=== PATIENT | female | born 1955 | race Caucasian/White ===

== ENCOUNTER 2023-03-29 18:23 | Inpatient (IN) | payer MEDICARE, OTHER ==
[~2023-03-29] VITALS: Ht 152.4 cm; Wt 70.7 kg
[2023-03-29 18:41] LABS: BASOPHILS # (AUTO) 0.1 10^3/uL (0.0-0.1); BASOPHILS % (AUTO) 1 % (0-10); EOSINOPHILS # (AUTO) 0.2 10^3/uL (0.0-0.3); EOSINOPHILS % (AUTO) 2 % (0-10); HEMATOCRIT 44 % (35-52); HEMOGLOBIN 14.4 g/dL (11.5-16.0); LYMPHOCYTES % (AUTO) 18 % (12-44); MEAN CORPUSCULAR HEMOGLOBIN 28 pg (25-34); MEAN CORPUSCULAR HGB CONC 33 g/dL (32-36); MEAN CORPUSCULAR VOLUME 86 fL (80-99); MEAN PLATELET VOLUME 9.4 fL (9.0-12.2); MONOCYTES # (AUTO) 1.2 10^3/uL (0.0-1.0); MONOCYTES % (AUTO) 11 % (0-12); NEUTROPHILS # (AUTO) 7.6 10^3/uL (1.8-7.8); NEUTROPHILS % (AUTO) 68 % (42-75); PLATELET COUNT 453 10^3/uL (130-400); WHITE BLOOD COUNT 11.1 10^3/uL (4.3-11.0)
[2023-03-29] MEDS ORDERED: ASPIRIN 81 MG CHEWABLE TABLET PO ONE (18:45)
[2023-03-29 18:48] LABS: INR 0.9 (0.8-1.4); PROTHROMBIN TIME PATIENT 12.3 SEC (12.2-14.7)
[2023-03-29 18:57] LABS: BILIRUBIN,TOTAL 0.5 MG/DL (0.1-1.0); BUN/CREATININE RATIO 14; CALCIUM 9.7 MG/DL (8.5-10.1); CARBON DIOXIDE 22 MMOL/L (21-32); CHLORIDE 99 MMOL/L (98-107); CREATININE SERUM 0.84 MG/DL (0.60-1.30); GFR ESTIMATED 76; GLUCOSE 125 MG/DL (70-105); MAGNESIUM 2.2 MG/DL (1.6-2.4); POTASSIUM 3.5 MMOL/L (3.6-5.0); SODIUM 135 MMOL/L (135-145)
[2023-03-29 18:58] LABS: ALANINE AMINOTRANSFERASE 20 U/L (0-55); ALBUMIN 4.5 GM/DL (3.2-4.5); ALKALINE PHOSPHATASE 149 U/L (40-136); LIPASE 39 U/L (8-78)
[2023-03-29] MEDS ORDERED: meTOprolol 5 MG/5 ML (LOPRESSOR) VIAL IV STA (19:00)
[2023-03-29] MEDS ORDERED: NS IV 1000 ML 1,000 ML IV STA (19:00)
[2023-03-29 19:05] LABS: FIBRIN DEGRADATION PRODUCTS 0.38 UG/ML (0.00-0.49)
--- NOTE | 2023-03-29 19:06 | ED Chest Pain ---
General Chief Complaint: Chest Pain Stated Complaint: CHEST PAIN Nursing Triage Note: Patient presents to the ED with c/o chest pain and irregular heart rate. States she was eating dinner when she felt a burning sensation and felt like her heart rate was irregular and rapid. Had chest pain on Thursday that started in right shoulder/upper back and went through to chest. States that pain resloved but does have a rash to the right shoulder area. Increased belching. History of NJ and non-compliant with medication. Source: patient History of Present Illness Date Seen by Provider: Mar 29, 2023 Time Seen by Provider: 18:24 Initial Comments 67-year-old female presenting with complaints of right-sided chest pain since March 24. She still has pain under her right shoulder blade. She does have a erythematous blistering rash in this area. She felt like she has been having irregular heartbeat and palpitations. She states that some of this feels similar to when she had a heart attack in [place] and had to have a stent placed in 2016. She reports moving to [place] in 2018 and she has never followed up with any provider since moving here. She felt like all of the medicines they were giving her in [place] was making her fatigued and loopy. She does take a baby aspirin every day along with a multivitamin and garlic. She states that tonight she was having pain and after dinner and felt like her heart was beating rapid and irregular. She states that the pain in the right side of her chest is improved but she still has pain to the right scapula where she has a rash. She has had increased belching. She still has her gallbladder and denies any other surgery other than to have the stent placement. Since she kept feeling like her heart was racing and beating irregular she got scared and decided to come to the emergency department tonight. Timing/Duration: 1 week Severity/Quality: moderate Location: back (Right-sided chest into her back and shoulder blade) Activities at Onset: none Prior CP/Workup: cardiac cath (Stent placement in [place] in 2016), heart attack (2015 when she had the stent placed in [place]) ASA po BLEACH RANGE OPERATOR: No NTG SL BLEACH RANGE OPERATOR: No Associated Symptoms: No abdominal pain, No back pain, No diaphoresis, No d izziness, No edema, No fatigue, No fever/chills, No headache, No heartburn, No nausea/vomiting, No rash; shortness of breath; No swelling/lump in chest, No syncope Allergies and Home Medications Allergies Coded Allergies: No Known Drug Allergies (Unverified , 03/29/23) Patient Home Medication List Home Medication List Reviewed: Yes Review of Systems Review of Systems Constitutional: No chills, No fever EENTM: No Symptoms Reported Respiratory: SOA at Rest Cardiovascular: See HPI Gastrointestinal: No Symptoms Reported Genitourinary: No Symptoms Reported Musculoskeletal: see HPI Skin: see HPI Psychiatric/Neurological: Anxiety Past Qgbtvgn-Gvasuz-Zoyaqx Hx Patient Social History Tobacco Use?: No Use of E-Cig and/or Vaping dev: No Substance use?: No Alcohol Use?: No Pt feels they are or have been: No Immunizations Up To Date Influenza Vaccine Up-to-Date: No; Not Current First/Initial COVID19 Vaccinat: Denies Past Medical History Surgery/Hospitalization HX: [place]; Cardiac Stents; HTN; High Cholesterol Physical Exam Vital Signs Vital Signs - First Documented Capillary Refill : Less Than 3 Seconds Height, Weight, BMI Height: '" Weight: lbs. oz. kg; BMI Method: General Appearance: No Apparent Distress, Obese HEENT: PERRL/EOMI, Pharynx Normal Neck: Full Range of Motion, Supple Respiratory: Chest Non Tender, Lungs Clear, Normal Breath Sounds, No Accessory Muscle Use, No Respiratory Distress Cardiovascular: Regular Rate, Rhythm (Sinus tachycardia with a heart rate 120), Normal Peripheral Pulses Gastrointestinal: Normal Bowel Sounds, No Pulsatile Mass, Non Tender, Soft Rectal: Deferred Extremity: Normal Capillary Refill, Normal Inspection, No Calf Tenderness, No Pedal Edema Neurologic/Psychiatric: Alert, Oriented x3 Skin: Normal Color, Warm/Dry Progress/Results/Core Measures Results/Orders Lab Results Laboratory Tests Test 03/29/23 18:29 Range/Units White Blood Count 11.1 H 4.3-11.0 10^3/uL Red Blood Count 5.11 3.80-5.11 10^6/uL Hemoglobin 14.4 11.5-16.0 g/dL Hematocrit 44 35-52 % Mean Corpuscular Volume 86 80-99 fL Mean Corpuscular Hemoglobin 28 25-34 pg Mean Corpuscular Hemoglobin Concent 33 32-36 g/dL Red Cell Distribution Width 13.7 10.0-14.5 % Platelet Count 453 H 130-400 10^3/uL Mean Platelet Volume 9.4 9.0-12.2 fL Immature Granulocyte % (Auto) 1 % Neutrophils (%) (Auto) 68 42-75 % Lymphocytes (%) (Auto) 18 12-44 % Monocytes (%) (Auto) 11 0-12 % Eosinophils (%) (Auto) 2 0-10 % Basophils (%) (Auto) 1 0-10 % Neutrophils # (Auto) 7.6 1.8-7.8 10^3/uL Lymphocytes # (Auto) 2.0 1.0-4.0 10^3/uL Monocytes # (Auto) 1.2 H 0.0-1.0 10^3/uL Eosinophils # (Auto) 0.2 0.0-0.3 10^3/uL Basophils # (Auto) 0.1 0.0-0.1 10^3/uL Immature Granulocyte # (Auto) 0.1 0.0-0.1 10^3/uL Prothrombin Time 12.3 12.2-14.7 SEC INR Comment 0.9 0.8-1.4 Activated Partial Thromboplast Time 29 24-35 SEC D-Dimer 0.38 0.00-0.49 UG/ML Sodium Level 135 135-145 MMOL/L Potassium Level 3.5 L 3.6-5.0 MMOL/L Chloride Level 99 98-107 MMOL/L Carbon Dioxide Level 22 21-32 MMOL/L Anion Gap 14 5-14 MMOL/L Blood Urea Nitrogen 12 7-18 MG/DL Creatinine 0.84 0.60-1.30 MG/DL Estimat Glomerular Filtration Rate 76 BUN/Creatinine Ratio 14 Glucose Level 125 H 70-105 MG/DL Calcium Level 9.7 8.5-10.1 MG/DL Corrected Calcium 9.3 8.5-10.1 MG/DL Magnesium Level 2.2 1.6-2.4 MG/DL Total Bilirubin 0.5 0.1-1.0 MG/DL Aspartate Amino Transf (AST/SGOT) 17 5-34 U/L Alanine Aminotransferase (ALT/SGPT) 20 0-55 U/L Alkaline Phosphatase 149 H 40-136 U/L Troponin I < 0.30 <0.30 NG/ML Pro-B-Type Natriuretic Peptide 3222.0 H <125.0 PG/ML Total Protein 8.0 6.4-8.2 GM/DL Albumin 4.5 3.2-4.5 GM/DL Lipase 39 8-78 U/L My Orders Orders - REBECCA BILL MD Cbc With Automated Diff (03/29/23 18:37) Magnesium (03/29/23 18:37) Chest 1 View Ap/Pa Only (03/29/23 18:37) Ekg Tracing (03/29/23 18:37) Comprehensive Metabolic Panel (03/29/23 18:37) Protime With Inr (03/29/23 18:37) Partial Thromboplastin Time (03/29/23 18:37) O2 (03/29/23 18:37) Monitor-Rhythm Ecg Trace Only (03/29/23 18:37) Aspirin Chewable Tablet (Baby Aspirin Ch (03/29/23 18:45) Ed Iv/Invasive Line Start (03/29/23 18:37) Lipase (03/29/23 18:37) Troponin I Fs (03/29/23 18:37) Probnp Fs (03/29/23 18:37) Fibrin Degradation Products (03/29/23 18:37) Ns Iv 1000 Ml (Sodium Chloride 0.9%) (03/29/23 19:00) Metoprolol Tartrate Injection (Lopressor (03/29/23 19:00) Furosemide Injection (Lasix Injection) (03/29/23 21:11) Ed Admission (Communication) (03/29/23 21:26) Medications Given in ED Current Medications Medications Dose Ordered Sig/Derrick Route Start Time Stop Time Status Last Admin Dose Admin Aspirin 324 mg ONCE ONCE PO 03/29/23 18:45 03/29/23 18:46 DC 03/29/23 18:48 324 MG Vital Signs/I&O 03/29/23 03/29/23 03/29/23 03/29/23 18:25 18:25 18:45 19:00 Temp 36.6 36.6 Pulse 113 113 103 101 Resp 14 14 16 18 B/P (MAP) 215/108 (143) 192/93 (126) 191/92 (125) 192/93 (126) Pulse Ox 100 100 99 98 O2 Delivery Room Air Room Air Room Air Room Air 03/29/23 03/29/23 03/29/23/23/23 19:15 19:30 19:45 20:00 Pulse 99 96 84 87 Resp 15 16 12 16 B/P (MAP) 181/93 (122) 185/102 (129) 181/100 (127) 182/96 (124) Pulse Ox 97 98 98 98 O2 Delivery Room Air Room Air Room Air Room Air 03/29/23 03/29/23 03/29/23 03/29/23 20:15 20:30 20:45 21:00 Pulse 89 84 88 89 Resp 16 14 18 17 B/P (MAP) 187/99 (128) 186/93 (124) 184/102 (129) 190/101 (130) Pulse Ox 99 97 97 97 O2 Delivery Room Air Room Air Room Air Room Air 03/29/23 03/29/23 03/29/23 03/29/23 21:15 21:30 21:45 22:00 Temp 36.2 Pulse 90 88 89 84 Resp 18 15 19 14 B/P (MAP) 191/98 (129) 185/100 (128) 184/96 (125) 184/89 (120) Pulse Ox 96 96 96 97 O2 Delivery Room Air Room Air Room Air Room Air Blood Pressure Mean: 126 Progress Progress Note #1: Progress Note Potential diagnosis of myocardial infarction, acute coronary syndrome, hypertensive urgency, electrolyte imbalance, atrial fibrillation, cardiac arrhythmia, medication noncompliance gallbladder attack, cholecystitis, pneumonia. Place patient on cardiac surveillance monitor and my initial interpretation shows heart rate was sinus tachycardia with a heart rate of 120. Obtain peripheral IV access and send labs for complete blood count, comprehensive metabolic profile, troponin, proBNP, magnesium, lipase, pro time, PTT. Urinalysis to look at hydration and look for infection. 1 view chest x-ray to evaluate for pathology in the chest. Electrocardiogram to further delineate her heart rate and rhythm. Look for signs of ischemia. Administer aspirin 324 mg p.o. x1, metoprolol 5 mg IV x1 for her hypertension, normal saline 1 L IV fluid bolus for her tachycardia. Progress Note #2: Time: 19:08 Progress Note On my personal interpretation and review of her 1 view chest x-ray I did not appreciate any effusion, or infiltrate. Heart appeared to have some cardiomegaly. 1919 labs shows white blood cell count at the upper limit of normal at 11.1 with a normal differential. Hemoglobin was not showing anemia as it was at 14.4. Platelets slightly elevated to 453. Comprehensive metabolic profile did not show any acute significant electrolyte abnormality on her basic electrolytes and glucose. Glucose was mildly elevated to 125. Troponin was negative at less than 0.3 considering she has been having pain and symptoms since Thursday and on this appears to be a negative troponin for acute myocardial infarction. Her proBNP is slightly elevated to 3222. D-dimer is negative at 0.38. Her coagulation factors were not elevated to indicate coagulopathy. Pro time was 12.3, INR 0.9, PTT of 29. Radiologist read the 1 view chest x-ray is no acute process but she does have a density at the left apex of the lung and recommended repeat imaging in the future to check for stability. Advised that the density could be overlying osseous structures or a granuloma, but again recommends repeat imaging in the future to check its stability. 2108 I discussed the findings and test results with patient and family member in the room. She was still complaining of some pressure in her chest and having the sharp and burning pain to the right side of her chest where she has the rash. She has some itching over the scapular where she has the rash on her back. I did advise her that this appears to be consistent with a shingles outbreak and she would need to take antiviral medicine to try and help calm down the infection. In terms of her chest pressure that could be related back to some CHF as well as the high blood pressure. She has had some improvement after getting the metoprolol and IV fluids. Heart rate is down to 80s to 90s now and her blood pressure was down to 188/92 instead of 215/112. Patient has not had any further palpitations while she was in the ED. We have not picked up any arrhythmia while monitoring her here. Advised patient that we were not seeing signs of heart attack or acute heart damage but she does have findings for heart failure. She was agreeable to admission so that she could have longer monitoring and hopefully order picker the palpitations and be able to tell her what was causing the symptoms. Also she can get started on antiviral medications for her shingles. She had already received 324 mg of aspirin here in the ED and metoprolol 5 mg IV. We will give Lasix 20 mg IV x1 and look to see if we have any antiviral medication to get her started on. Patient was reluctant to take medication for neuropathy pain so will hold off on prescribing any gabapentin or Lyrica. I called and spoke with Dr. Bailon the on-call hospitalist. I reviewed the patient's presentation and history of having prior heart attack with matilde castillo in 2016. She has been told that she has heart failure but she has not been on any medications since at least 2017 when she moved to [place] from [place]. She was anxious about taking medicines and worried about side effects. She felt that she was really sensitive to medications and tended to get side effects easily. She also noted that none of the blood pressure medicine she was on from - while she was in [place] ever helped with her blood pressure. He was agreeable to an observation admission for her atypical chest pain and CHF. Will get her started on medication for her shingles as well. He will place queued orders. On review of the medications available here in limited pharmacy supply in [place] ED I only had IV acyclovir so no antiviral ordered in the ED but given Lasix 20 mg IV x 1. Initial ECG Impression Date: Mar 29, 2023 Initial ECG Impression Time: 18:30 Initial ECG Rate: 111 Initial ECG Rhythm: S.Tach Initial ECG Comparisson: No Previous ECG Available Comment On my interpretation her electrocardiogram shows sinus tachycardia with a heart rate of 111 bpm. There is no acute ST elevation. She has TX interval of 152 ms. QT interval 320 ms with a QTc interval 386 ms. She has no prior tracing available for comparison. Diagnostic Imaging Diagonstic Imaging: Xray Plain Films/CT/US/NM/MRI: chest Comments NAME: [facility]E BHAKTA [facility] REC#: [id number] PT STATUS: REG ER : 1955 PHYSICIAN: REBECCA BILL MD ADMIT DATE: 03/29/23/ER FS Draft Date of Exam:03/29/23 CHEST 1 VIEW AP/PA ONLY INDICATION: Chest pain since Thursday, palpitations. EXAMINATION: Chest 03/29/2023 FINDINGS: There is enlargement of the heart. Pulmonary vasculature normal. The lungs clear other than a density in the left apex which may be a bone island or superimposed osseous structures with a calcified granuloma not excluded. No infiltrates or effusions. No pneumothorax. IMPRESSION: 1. Density left apex as above. Follow-up recommended to assure stability. 2. Cardiomegaly. Dictated on workstation # [id number] Dict: 03/29/231911 Trans: 03/29/231915 [facility] [id number] Interpreted by: TOAN LINDSAY MD Electronically signed by: Reviewed: Reviewed by Me Departure Communication (Admissions) Time/Spoke to Admitting Phy: 21:08 I called and spoke with Dr. Bailon the on-call hospitalist. I reviewed the patient's presentation and history of having prior heart attack with stent placement in 2016. She has been told that she has heart failure but she has not been on any medications since at least 2018 when she moved to [place] from [place]. She was anxious about taking medicines and worried about side effects. She felt that she was really sensitive to medications and tended to get side effects easily. She also noted that none of the blood pressure medicine she was on from - while she was in [place] ever helped with her blood pressure. He was agreeable to an observation admission for her atypical chest pain and CHF. Will get her started on medication for her shingles as well. He will place queued orders. Impression Primary Impression: Heart palpitations Additional Impressions: Atypical chest pain Hypertension Qualified Codes: I10 - Essential (primary) hypertension Shingles Qualified Codes: B02.9 - Zoster without complications Congestive heart failure Qualified Codes: I50.9 - Heart failure, unspecified Disposition: 30 STILL A PATIENT Condition: Stable Admissions Decision to Admit Reason: Admit from ER (General) Decision to Admit/Date: Mar 29, 2023 Time/Decision to Admit Time: 21:08 Images Torso/Trunk 1 - Moderate, Rash (vesicles and blisters present with erythema), Tenderness 2 - Mild, Rash (Erythematous macular rash and some vesicles consistent with shingles appearing rash) REBECCA BILL MD Mar 29, 2023 19:06
--- NOTE | 2023-03-29 19:16 | Diagnostic Imaging Report ---
INDICATION: Chest pain since Thursday, palpitations. EXAMINATION: Chest 03/29/2023 FINDINGS: There is enlargement of the heart. Pulmonary vasculature normal. The lungs clear other than a density in the left apex which may be a bone island or superimposed osseous structures with a calcified granuloma not excluded. No infiltrates or effusions. No pneumothorax. IMPRESSION: 1. Density left apex as above. Follow-up recommended to assure stability. 2. Cardiomegaly. Dictated by: Dictated on workstation # [id number]
[2023-03-29] MEDS ORDERED: FUROSEMIDE 40 MG/4 ML INJ (LASIX) IVP STA (21:11)
[2023-03-29] MEDS ORDERED: LACTULOSE SYRUP 10GM/15ML (ENULOSE) 30ML UDC PO PRN (23:15)
[2023-03-29] MEDS ORDERED: ACETAMINOPHEN 325 MG TABLET PO PRN (23:15)
[2023-03-29] MEDS ORDERED: hydrALAZINE (APESOLINE) 20 MG/ML VIAL IV PRN (23:15)
[2023-03-29] MEDS ORDERED: ONDANSETRON 4 MG/2 ML (SDV) Z0FRAN IV PRN (23:15)
[2023-03-29] MEDS ORDERED: diphenhydrAMINE 25 MG TAB (BENADRYL) PO PRN (23:15)
[2023-03-29] MEDS ORDERED: MELATONIN 3 MG TABLET PO PRN (23:15)
[2023-03-29] MEDS ORDERED: BISACODYL 10 MG SUPPOSITORY PR PRN (23:15)
[2023-03-29] MEDS ORDERED: diphenhydrAMINE 50 MG/ML INJ (BENADRYL) IVP PRN (23:15)
[2023-03-29] MEDS ORDERED: ANTACID SUSP 30 ML UDC (MYLANTA) PO PRN (23:15)
[2023-03-29] MEDS ORDERED: polyethylene glycoL POWDER 17 GM (MIRALAX) PACK PO PRN (23:15)
[2023-03-29] MEDS ORDERED: amLODIPine 10 MG TABLET PO ONE (23:15)
[2023-03-29] MEDS ORDERED: ONDANSETRON 4 MG (ZOFRAN) ORAL DISSOLVE TAB PO PRN (23:15)
[2023-03-29 23:29] VITALS: BP 189/95
[2023-03-30] VITALS (8 sets, daily range): BP systolic 145–201; BP diastolic 68–97
[2023-03-30 06:01] LABS: BASOPHILS # (AUTO) 0.1 10^3/uL (0.0-0.1); BASOPHILS % (AUTO) 1 % (0-10); EOSINOPHILS # (AUTO) 0.1 10^3/uL (0.0-0.3); EOSINOPHILS % (AUTO) 1 % (0-10); HEMATOCRIT 40 % (35-52); HEMOGLOBIN 13.2 g/dL (11.5-16.0); LYMPHOCYTES # (AUTO) 1.3 10^3/uL (1.0-4.0); LYMPHOCYTES % (AUTO) 12 % (12-44); MEAN CORPUSCULAR HEMOGLOBIN 28 pg (25-34); MEAN CORPUSCULAR HGB CONC 33 g/dL (32-36); MEAN CORPUSCULAR VOLUME 87 fL (80-99); MEAN PLATELET VOLUME 9.7 fL (9.0-12.2); MONOCYTES # (AUTO) 1.2 10^3/uL (0.0-1.0); MONOCYTES % (AUTO) 11 % (0-12); NEUTROPHILS % (AUTO) 74 % (42-75); PLATELET COUNT 378 10^3/uL (130-400); WHITE BLOOD COUNT 10.9 10^3/uL (4.3-11.0)
[2023-03-30 06:13] LABS: CALCIUM 8.7 MG/DL (8.5-10.1); CREATININE SERUM 0.82 MG/DL (0.60-1.30); POTASSIUM 3.9 MMOL/L (3.6-5.0)
[2023-03-30] MEDS: VALACYCLOVIR 500 MG TAB (VALTREX) PO SCH ×3 (08:12→21:03)
[2023-03-30] MEDS: DOCUSATE SODIUM 100 MG (COLACE) CAP PO SCH ×2 (08:12→21:03)
[2023-03-30] MEDS ORDERED: amLODIPine 10 MG TABLET PO SCH (09:00)
[2023-03-30] MEDS ORDERED: ASPI-1238 PO (10:29)
[2023-03-30] MEDS ORDERED: GARL10002 PO (10:30)
[2023-03-30] MEDS ORDERED: ACET-2267 PO (10:30)
[2023-03-30] MEDS ORDERED: MULT-1136 PO (10:30)
--- NOTE | 2023-03-30 10:45 | Consultation-Cardiology ---
HPI-Cardiology Cardiology Consultation Date of Consultation 03/30/23 Date of Admission Time Seen by Provider: 10:15 Indication: Chest pain HPI Patient is a 67 y/o female with reported hx of CAD with stent placement in 2016 in [place]. Presented to the ER with complaints of intermittent right sided chest pain and palpitations. Noted to have a rash and pain and tigling over right shoulder since Thursday. Associated dyspnea on exertion. Reports history of HTN, but has not taken any blood pressure medications for the past several years, as she reports her medications made her "feel bad." Denies any active chest pain. Denies any dizziness, lightheadedness or syncope. States she has not seen a DrRigo since moving to [facility] in 2018. Home Medications & Allergies Allergies: Coded Allergies: No Known Drug Allergies (Unverified , 03/29/23) MRY-Vufbvt-Uwkgau Hx Patient Social History Smoking Status: Never a Smoker Alcohol Use?: No Past Medical History CAD, HTN Family Medical History Significant Family History: No Pertinent Family Hx Review of Systems-General Review of Systems Constitutional: see HPI; No chills, No fever EENTM: see HPI Respiratory: No cough; dyspnea on exertion; No short of breath Cardiovascular: see HPI, chest pain; No edema; Hx of Intervention, palpitations; No syncope Gastrointestinal: see HPI Genitourinary: see HPI Musculoskeletal: see HPI Skin: see HPI Psychiatric/Neurological: Anxiety Reviewed Test Results Reviewed Test Results Lab Laboratory Tests 03/29/23 18:29: White Blood Count 11.1H, Red Blood Count 5.11, Hemoglobin 14.4, Hematocrit 44, Mean Corpuscular Volume 86, Mean Corpuscular Hemoglobin 28, Mean Corpuscular Hemoglobin Concent 33, Red Cell Distribution Width 13.7, Platelet Count 453H, Mean Platelet Volume 9.4, Immature Granulocyte % (Auto) 1, Neutrophils (%) (Auto) 68, Lymphocytes (%) (Auto) 18, Monocytes (%) (Auto) 11, Eosinophils (%) (Auto) 2, Basophils (%) (Auto) 1, Neutrophils # (Auto) 7.6, Lymphocytes # (Auto) 2.0, Monocytes # (Auto) 1.2H, Eosinophils # (Auto) 0.2, Basophils # (Auto) 0.1, Immature Granulocyte # (Auto) 0.1, Prothrombin Time 12.3, INR Comment 0.9, Activated Partial Thromboplast Time 29, D-Dimer 0.38, Sodium Level 135, Potas sium Level 3.5L, Chloride Level 99, Carbon Dioxide Level 22, Anion Gap 14, Blood Urea Nitrogen 12, Creatinine 0.84, Estimat Glomerular Filtration Rate 76, BUN/Creatinine Ratio 14, Glucose Level 125H, Calcium Level 9.7, Corrected Calcium 9.3, Magnesium Level 2.2, Total Bilirubin 0.5, Aspartate Amino Transf (AST/SGOT) 17, Alanine Aminotransferase (ALT/SGPT) 20, Alkaline Phosphatase 149H , Troponin I < 0.30, Pro-B-Type Natriuretic Peptide 3222.0H, Total Protein 8.0, Albumin 4.5, Lipase 39 03/30/23 05:39: White Blood Count 10.9, Red Blood Count 4.64, Hemoglobin 13.2, Hematocrit 40, Mean Corpuscular Volume 87, Mean Corpuscular Hemoglobin 28, Mean Corpuscular Hemoglobin Concent 33, Red Cell Distribution Width 13.7, Platelet Count 378, Mean Platelet Volume 9.7, Immature Granulocyte % (Auto) 1, Neutrophils (%) (Auto) 74, Lymphocytes (%) (Auto) 12, Monocytes (%) (Auto) 11, Eosinophils (%) (Auto) 1, Basophils (%) (Auto) 1, Neutrophils # (Auto) 8.0H, Lymphocytes # (Auto) 1.3, Monocytes # (Auto) 1.2H, Eosinophils # (Auto) 0.1, Basophils # (Auto) 0.1, Immature Granulocyte # (Auto) 0.1, Sodium Level 138, Potassium Level 3.9, Chloride Level 106, Carbon Dioxide Level 19L, Anion Gap 13, Blood Urea Nitrogen 12, Creatinine 0.82, Estimat Glomerular Filtration Rate 78, BUN/Creatinine Ratio 15, Glucose Level 120H, Calcium Level 8.7 ECG Impression ECG Initial ECG Rhythm: S.Tach Physical Exam Physical Exam Vital Signs Vital Signs - First Documented Capillary Refill : Less Than 3 Seconds Height, Weight, BMI Height: '" Weight: lbs. oz. kg; 30.95 BMI Method: General Appearance: No Apparent Distress, WD/WN, Anxious, Obese HEENT: PERRL/EOMI, Pharynx Normal Neck: Full Range of Motion, Supple Respiratory: Chest Non Tender, Lungs Clear, Normal Breath Sounds, No Accessory Muscle Use, No Respiratory Distress Cardiovascular: Normal Peripheral Pulses, Tachycardia Gastrointestinal: Normal Bowel Sounds, No Pulsatile Mass, Non Tender, Soft Rectal: Deferred Extremity: Normal Capillary Refill, Normal Inspection, No Calf Tenderness, No Pedal Edema Neurologic/Psychiatric: Alert, Oriented x3 Skin: Normal Color, Warm/Dry, Rash (shingles to right side torso/upper arm) A/P-Cardiology Admission Diagnosis Chest pain Shingles CAD CHF Assessment/Plan Chest pain, nonspecific etiology, EKG done in ER showing sinus tachycardia with no acute ST changes. Troponin negative. Patient complaining of right sided chest pain, could be secondary to shingles. Will continue on telemetry and continue to monitor, consider stress test CAD, reported history of stenting done in 2016. Has not followed with cardiology recently. CHF, acute LV systolic dysfunction. 2D Echo done 03/30/23 showing normal LV size, EF 40-45%. Grade 1 diastolic dysfunction, mild to moderate MR. PA 25-30mmHg. Unknown etiology, possibly ischemic in nature. Will start patient on low dose beta fide, ARB if she is agreeable. HTN, has been noncompliant with blood pressure medications in the past. Blood pressure elevated. Started on amlodipine. Questionable HLP, I will evaluate lipid profile Shingles to right torso/shoulder. Receiving acyclovir. Management per medical services. Anxiety Thank you for allowing us to participate in the management of Ms. Alston. This is Oxana Oden PA-C, as a scribe for DR. Thomas. Patient was seen and evaluated with Oxana, was still having significant pain, appears to be musculoskeletal most probably due to shingles. Cardiac enzymes and EKG did not show any acute abnormalities Continue to monitor telemetry, discussed the possibility of doing a stress test once clinically patient is more stable Patient has extensive cardiac history with history of coronary artery disease and stent done in the past, left ventricular systolic dysfunction with ejection fraction 40 to 45% Discussed compliance with medications Continue to monitor at this point Clinical Quality Measures AMI/AHF: ASA po Prior to arrival: No OXANA CAZARES Mar 30, 2023 10:45 RACHEAL THOMAS MD Mar 30, 2023 14:53
--- NOTE | 2023-03-30 12:15 | History & Physical-Hospitalist ---
History of Present Illness HPI/Chief Complaint Patient 67-year-old female with past medical history of coronary artery disease who presented to the emergency department due to chest pain. She states that she has had a stent placed in 2016 when she lived in [place]. She reports being placed on a lot of medicines for that and since moving here a couple of years ago she stopped taking all of them. She states that the medicines made her very tired and she quit taking them she started to feel better. About a week ago she started to have chest pain across her chest and back. A couple days later she developed a rash in that area that she at first thought was bug bites. The pain started to get a little better 2 days ago but then recurred yesterday and her heart rate became very fast into the 160s. She presented to the emergency department for evaluation and was admitted for further management. She has been very hypertensive all night but refused her medications. She has been quite hypertensive all night and did ultimately take amlodipine and hydralazine this AM but now states she's very tired. Source: patient Date Seen 03/30/23 Time Seen by a Provider: 12:15 Attending Physician No,Local Physician PCP Admitting Physician: Michelle Bailon MD Attending Physician: Michelle Bailon MD Referring Physician Date of Admission Mar 29, 2023 at 22:55 Home Medications & Allergies Home Medications Reviewed patient Home Medication Reconciliation performed by pharmacy medication reconciliations computed tomography technician and/or nursing. Patients Allergies have been reviewed. Allergies Allergies Coded Allergies No Known Drug Allergies (Unverified03/29/23) Past [id number] Hx Patient Social History Tobacco Use?: No Smoking Status: Never a Smoker Smokeless Tobacco Frequency: Never a User Use of E-Cig and/or Vaping dev: No Use of E-Cig and/or Vaping Mckay: Never a User Substance use?: No Alcohol Use?: No Pt feels they are or have been: No Immunizations Up To Date First/Initial COVID19 Vaccinat: Denies Current Status status: No status: No Advance Directives: No Communicates: Verbally Primary Language: Paraguayan Preferred Spoken Language: Paraguayan Is interpretation needed?: No Implanted or Applied Medical D: Stents Family Medical History No Pertinent Family Hx Review of Systems Constitutional: see HPI Physical Exam Physical Exam Vital Signs Vital Signs - First Documented Capillary Refill : Less Than 3 Seconds Height, Weight, BMI Height: '" Weight: lbs. oz. kg; 30.95 BMI Method: General Appearance: No Apparent Distress, Anxious Respiratory: Lungs Clear, No Respiratory Distress Cardiovascular: Regular Rate, Rhythm, No Murmur Gastrointestinal: Normal Bowel Sounds, Soft Neurologic/Psychiatric: Alert (0), Oriented x3 Results Results/Procedures Labs Laboratory Tests 03/29/23 18:29 03/30/23 05:39 03/31/23 03:51 Patient resulted labs reviewed. Assessment/Plan Admission Diagnosis HTN Urgency Admission Status: Observation Assessment and Plan HTN Urgency CAD Continue amlodipine Hydralazine prn Cardiology consulted, appreciate recs Echo pending Shingles Continue Valtrex Diagnosis/Problems Diagnosis/Problems (1) Atypical chest pain Status: Acute (2) Heart palpitations Status: Acute (3) Hypertension Status: Acute Qualifiers: Hypertension type: unspecified Qualified Codes: I10 - Essential (primary) hypertension (4) Shingles Status: Acute Qualifiers: Herpes zoster complications: without complications Qualified Codes: B02.9 - Zoster without complications Clinical Quality Measures AMI/AHF: ASA po Prior to arrival: MANOLO Santana MD Mar 30, 2023 12:15
[2023-03-30] MEDS: IBUPROFEN 600 MG (MOTRIN) TAB PO PRN ×2 (13:45→23:10)
[2023-03-31] MEDS ORDERED: dilTIAZem DRIP PRE-MIX 125 ML IV SCH (00:30)
[2023-03-31] MEDS ORDERED: dilTIAZem DRIP PRE-MIX 125 ML IV ONE (00:37)
--- NOTE | 2023-03-31 01:12 | Pulmonary Progress Note ---
A/P-Cardiology Assessment/Admission Diagnosis 67 y/o female with reported hx of CAD with stent placement in 2016 in [place] presenting with chest pain. Also rash over right shoulder. Has HTN but not been taking medications since they made her feel bad. TTE done with redeuced EF. HTN meds started. Patient also noted to be in afib w/ rvr and sent to ICU for closer monitoring. Vitals: 172/99, T 36.9, HR 105, RR 11 at 96% on RA PE: NAD Labs: CBC 10.9/13.2/378, CMP 138/3.9/106/19/12/0.82, proBNP 3222, trop<0.3, DD 0.38 Rads: CXR 1. Density left apex as above. Follow-up recommended to assure stability. 2. Cardiomegaly. Diagnosis: # HTN # CAD # Acute systolic LV dysfunction # Chest pain, less likely ACS more likely shingles - TTE with EF 40-45%, G1DD - Cards following - continue cardiac meds # Afib w/ RVR - went to HR of 180 in GMF - contnue Dilt gtt # Shingles # Pain - continue antiviral per primary A total of 31 minutes of critical care time was devoted to this patient, incl uding reviewing this patient's available data, including medical history, events of note and test results. Ute Humphries MD TeleICU This was required to treat and/or prevent further deterioration of critical care conditions ( as above ). Service provided to a patient admitted to ICU bed via interactive E-CARE system with real-time audio and video telecommunications from [facility]- ICU hub located in [place], [place] UTE HUMPHRIES MD Mar 31, 2023 01:12
[2023-03-31] MEDS ORDERED: NS IV 500 ML 500 ML IV PRN (01:30)
[2023-03-31 04:49] LABS: BASOPHILS # (AUTO) 0.1 10^3/uL (0.0-0.1); BASOPHILS % (AUTO) 1 % (0-10); EOSINOPHILS # (AUTO) 0.1 10^3/uL (0.0-0.3); EOSINOPHILS % (AUTO) 1 % (0-10); HEMATOCRIT 42 % (35-52); HEMOGLOBIN 13.6 g/dL (11.5-16.0); LYMPHOCYTES # (AUTO) 1.6 10^3/uL (1.0-4.0); LYMPHOCYTES % (AUTO) 22 % (12-44); MEAN CORPUSCULAR HEMOGLOBIN 28 pg (25-34); MEAN CORPUSCULAR HGB CONC 33 g/dL (32-36); MEAN CORPUSCULAR VOLUME 86 fL (80-99); MEAN PLATELET VOLUME 9.9 fL (9.0-12.2); MONOCYTES % (AUTO) 14 % (0-12); NEUTROPHILS # (AUTO) 4.3 10^3/uL (1.8-7.8); NEUTROPHILS % (AUTO) 61 % (42-75); PLATELET COUNT 354 10^3/uL (130-400); WHITE BLOOD COUNT 7.1 10^3/uL (4.3-11.0)
[2023-03-31 05:15] LABS: ALBUMIN 3.9 GM/DL (3.2-4.5); BILIRUBIN,TOTAL 0.6 MG/DL (0.1-1.0); CREATININE SERUM 0.86 MG/DL (0.60-1.30); MAGNESIUM 2.1 MG/DL (1.6-2.4); PHOSPHORUS 4.4 MG/DL (2.3-4.7); POTASSIUM 3.7 MMOL/L (3.6-5.0); TOTAL PROTEIN 7.1 GM/DL (6.4-8.2)
[2023-03-31] MEDS: POTASSIUM CL 10MEQ/50ML IVPB 50 ML IV SCH (05:21)
[2023-03-31] MEDS: MAGNESIUM 1 GM/100 ML IVPB 100 ML IV SCH (05:22)
[2023-03-31] MEDS: KCL 20 MEQ TAB (K-DUR) PO SCH (05:23)
[2023-03-31] MEDS: VALACYCLOVIR 500 MG TAB (VALTREX) PO SCH ×3 (05:54→21:51)
[2023-03-31] MEDS ORDERED: ENOXAPARIN 80 MG/0.8 ML (LOVENOX) SYR SC SCH (06:00)
--- NOTE | 2023-03-31 07:54 | Cardiology Progress Note ---
Subjective Date Seen by Provider: Mar 31, 2023 Time Seen by Provider: 07:49 Subjective/Events-last exam Patient had an episode of atrial fibrillation with rapid ventricular response converted to sinus rhythm Had another episode of atrial fibrillation with rapid ventricular response that persisted, patient was started on Cardizem drip and transferred to ICU. Overnight she converted to sinus rhythm Review of Systems General: No Chills, No Night Sweats, No Fatigue, No Malaise, No Appetite, No Other HEENT: No Head Aches, No Visual Changes, No Eye Pain, No Ear Pain, No Dysphasia, No Sinus Congestion, No Post Nasal Drip, No Sore Throat, No Other Pulmonary: Dyspnea; No Cough, No Pleuritic Chest Pain, No Other Cardiovascular: Chest Pain; No: Palpitations, Orthopnea, Paroxysmal Noc. Dyspnea, Edema, Lt Headedness, Other Objective-Cardiology Exam Last Set of Vital Signs Vital Signs 03/31/23 03/31/23 07:00 07:19 Pulse 86 Resp 17 B/P (MAP) 173/87 (115) Pulse Ox 97 O2 Delivery Room Air I&O Intake and Output 03/31/23 00:00 Intake Total 2495 ml Output Total 2500 ml Balance -5 ml Intake Oral 2495 ml Output Urine Total 2500 ml # Voids 2 General: Alert, Oriented X3, Cooperative HEENT: Atraumatic, PERRLA Neck: Supple, No JVD, No Thyromegaly Lungs: Clear to Auscultation, Normal Air Movement Heart: Regular Rate, Normal S1, Normal S2, No Murmurs Abdomen: Normal Bowel Sounds, Soft, No Tenderness, No Hepatosplenomegaly, No Masses Extremities: No Clubbing, No Cyanosis, No Edema, Normal Pulses, No Tenderness/Swelling Skin: No Rashes, No Breakdown, No Significant Lesion Neuro: Normal Gait, Normal Speech, Strength at 5/5 X4 Ext, Normal Tone, Sensation Intact Psych/Mental Status: Mental Status NL, Mood NL Results Lab Laboratory Tests 03/31/23 03:51 A/P-Cardiology Admission Diagnosis Chest pain Shingles CAD CHF Assessment/Plan Chest pain, nonspecific etiology, EKG done in ER showing sinus tachycardia with no acute ST changes. Troponin negative. Patient complaining of right sided chest pain, could be secondary to shingles. Will continue on telemetry and continue to monitor, consider stress test as an outpatient CAD, reported history of stenting done in 2016. Has not followed with cardiology recently. Paroxysmal atrial fibrillation, had multiple episodes of atrial fibrillation on March 30, 2023. Transferred to ICU and started on Cardizem drip Currently in sinus rhythm I will start her on Eliquis and amiodarone and planning to proceed with loop monitor as an outpatient CHF, acute LV systolic dysfunction. 2D Echo done 03/30/23 showing normal LV size, EF 40-45%. Grade 1 diastolic dysfunction, mild to moderate MR. PA 25-30mmHg. Unknown etiology, possibly ischemic in nature. Will start patient on low dose beta fide, ARB if she is agreeable. HTN, has been noncompliant with blood pressure medications in the past. Blood pressure elevated. I will add beta-blockers with Toprol-XL 25 mg daily Questionable HLP, I will evaluate lipid profile Shingles to right torso/shoulder. Receiving acyclovir. Management per medical services. Anxiety RACHEAL DE PAZ MD Mar 31, 2023 07:54
[2023-03-31] MEDS ORDERED: KCL 20 MEQ TAB (K-DUR) PO ONE (08:00)
[2023-03-31] MEDS ORDERED: AMIODARONE FOR BOLUS 150 MG in NS (IVPB) 100 ML 100 ML IV ONE (08:00)
[2023-03-31 08:20] VITALS: BP 180/96
[2023-03-31] MEDS: AMIODARONE 200 MG TABLET PO SCH ×2 (08:25→21:49)
[2023-03-31] MEDS: DOCUSATE SODIUM 100 MG (COLACE) CAP PO SCH ×2 (08:25→21:48)
[2023-03-31] MEDS: APIXABAN 5 MG TABLET PO SCH ×2 (08:25→21:49)
[2023-03-31] MEDS: LOSARTAN 50 MG (COZAAR) TAB PO SCH (08:25)
[2023-03-31] MEDS: ASPIRIN enteric coated 81MG TABLET PO SCH (08:25)
[2023-03-31] MEDS: PANTOPRAZOLE 40 MG (PROTONIX) TAB PO SCH (08:32)
--- NOTE | 2023-03-31 09:10 | Progress Note - Hospitalist ---
Subjective HPI/CC On Admission Date Seen by Provider: Mar 31, 2023 Patient 67-year-old female with past medical history of coronary artery disease who presented to the emergency department due to chest pain. She states that she has had a stent placed in 2015 when she lived in [place]. She reports being placed on a lot of medicines for that and since moving here a couple of years ago she stopped taking all of them. She states that the medic deana made her very tired and she quit taking them she started to feel better. About a week ago she started to have chest pain across her chest and back. A couple days later she developed a rash in that area that she at first thought was bug bites. The pain started to get a little better 2 days ago but then recurred yesterday and her heart rate became very fast into the 160s. She presented to the emergency department for evaluation and was admitted for further management. She has been very hypertensive all night but refused her medications. She has been quite hypertensive all night and did ultimately take amlodipine and hydralazine this AM but now states she's very tired. Subjective/Events-last exam Pt reports being anxious about her heart. She is reluctant to take her medicines because she worries about the side effects. We discussed the indications for medication to treat her a fib and for stroke ppx and the risks and benefits. She is willing to try them. Objective Exam Vital Signs Vital Signs Date Time Temp Pulse Resp B/P (MAP) Pulse Ox O2 Delivery O2 Flow Rate FiO2 03/31/23 08:20 87 180/96 03/31/23 08:00 36.8 03/31/23 08:00 18 97 Room Air Capillary Refill : Less Than 3 Seconds General Appearance: No Apparent Distress, Anxious Respiratory: Lungs Clear, No Respiratory Distress Cardiovascular: Regular Rate, Rhythm, No Murmur Neurologic/Psychiatric: Alert, Oriented x3 Results/Procedures Lab Laboratory Tests 03/31/23 03:51 Patient resulted labs reviewed. Assessment/Plan Assessment and Plan Assess & Plan/Chief Complaint A fib with RVR New onset Echo yesterday showed EF of 40% cardioogy consulted, Converted back to sinus Amio gtt ordred Eliquis for stroke ppx HTN Urgency CAD Continue amlodipine Hydralazine prn Cardiology consulted, appreciate recs Shingles Continue Valtrex DVT ppx: Eliquis Diagnosis/Problems Diagnosis/Problems (1) Atypical chest pain Status: Acute (2) Heart palpitations Status: Acute (3) Hypertension Status: Acute Qualifiers: Hypertension type: unspecified Qualified Codes: I10 - Essential (primary) hypertension (4) Shingles Status: Acute Qualifiers: Herpes zoster complications: without complications Qualified Codes: B02.9 - Zoster without complications Clinical Quality Measures AMI/AHF: ASA po Prior to arrival: MANOLO Santana MD Mar 31, 2023 09:10
[2023-04-01 05:07] LABS: BASOPHILS # (AUTO) 0.1 10^3/uL (0.0-0.1); BASOPHILS % (AUTO) 1 % (0-10); EOSINOPHILS # (AUTO) 0.3 10^3/uL (0.0-0.3); EOSINOPHILS % (AUTO) 3 % (0-10); HEMATOCRIT 40 % (35-52); LYMPHOCYTES # (AUTO) 2.1 10^3/uL (1.0-4.0); LYMPHOCYTES % (AUTO) 24 % (12-44); MEAN CORPUSCULAR HEMOGLOBIN 28 pg (25-34); MEAN CORPUSCULAR HGB CONC 32 g/dL (32-36); MEAN CORPUSCULAR VOLUME 87 fL (80-99); MEAN PLATELET VOLUME 9.7 fL (9.0-12.2); MONOCYTES # (AUTO) 1.1 10^3/uL (0.0-1.0); MONOCYTES % (AUTO) 13 % (0-12); NEUTROPHILS % (AUTO) 58 % (42-75); PLATELET COUNT 359 10^3/uL (130-400); WHITE BLOOD COUNT 8.6 10^3/uL (4.3-11.0)
[2023-04-01 05:17] LABS: ALBUMIN 3.5 GM/DL (3.2-4.5); POTASSIUM 4.4 MMOL/L (3.6-5.0)
[2023-04-01 05:18] LABS: CALCIUM 8.5 MG/DL (8.5-10.1)
[2023-04-01 05:19] LABS: TOTAL PROTEIN 6.2 GM/DL (6.4-8.2)
[2023-04-01 05:21] LABS: BILIRUBIN,TOTAL 0.4 MG/DL (0.1-1.0)
[2023-04-01 05:22] LABS: PHOSPHORUS 4.3 MG/DL (2.3-4.7)
[2023-04-01 05:23] LABS: CREATININE SERUM 0.85 MG/DL (0.60-1.30)
[2023-04-01 05:26] LABS: MAGNESIUM 2.1 MG/DL (1.6-2.4)
[2023-04-01 05:32] LABS: SMEAR SCAN COMMENT YES
[2023-04-01] MEDS: KCL 20 MEQ TAB (K-DUR) PO SCH (05:33)
[2023-04-01] MEDS: MAGNESIUM 1 GM/100 ML IVPB 100 ML IV SCH (05:33)
[2023-04-01] MEDS: POTASSIUM CL 10MEQ/50ML IVPB 50 ML IV SCH (05:33)
[2023-04-01] MEDS: VALACYCLOVIR 500 MG TAB (VALTREX) PO SCH ×2 (05:58→13:50)
[2023-04-01] MEDS: LOSARTAN 50 MG (COZAAR) TAB PO SCH (08:34)
[2023-04-01] MEDS: AMIODARONE 200 MG TABLET PO SCH (08:34)
[2023-04-01] MEDS: ASPIRIN enteric coated 81MG TABLET PO SCH (08:34)
[2023-04-01] MEDS: APIXABAN 5 MG TABLET PO SCH (08:34)
[2023-04-01] MEDS: DOCUSATE SODIUM 100 MG (COLACE) CAP PO SCH (08:40)
[2023-04-01] MEDS: PANTOPRAZOLE 40 MG (PROTONIX) TAB PO SCH (08:40)
--- NOTE | 2023-04-01 08:49 | Discharge Summary ---
Diagnosis/Chief Complaint Date of Admission Mar 31, 2023 at 11:28 Date of Discharge Admission Diagnosis HTN Urgency Primary Care No,Local Physician Discharge Diagnosis (1) Atypical chest pain Status: Acute (2) Heart palpitations Status: Acute (3) Hypertension Status: Acute (4) Shingles Status: Acute Discharge Summary Discharge Physical Exam Allergies: Coded Allergies: No Known Drug Allergies (Unverified , 03/29/23) Vitals & I&Os Vital Signs Date Time Temp Pulse Resp B/P (MAP) Pulse Ox O2 Delivery O2 Flow Rate FiO2 04/01/23 08:00 67 14 134/67 (89) 91 Room Air 03/31/23 15:32 36.5 Hospital Course Labs (last 24 hrs) Laboratory Tests 04/01/23 04:38: White Blood Count 8.6, Red Blood Count 4.63, Hemoglobin 13.0, Hematocrit 40, Mean Corpuscular Volume 87, Mean Corpuscular Hemoglobin 28, Mean Corpuscular Hemoglobin Concent 32, Red Cell Distribution Width 13.6, Platelet Count 359, Mean Platelet Volume 9.7, Immature Granulocyte % (Auto) 1, Neutrophils (%) (Auto) 58, Lymphocytes (%) (Auto) 24, Monocytes (%) (Auto) 13H, Eosinophils (%) (Auto) 3, Basophils (%) (Auto) 1, Neutrophils # (Auto) 5.0, Lymphocytes # (Auto) 2.1, Monocytes # (Auto) 1.1H, Eosinophils # (Auto) 0.3, Basophils # (Auto) 0.1, Immature Granulocyte # (Auto) 0.1, Sodium Level 135, Potassium Level 4.4, Chloride Level 107, Carbon Dioxide Level 18L, Anion Gap 10, Blood Urea Nitrogen 22H, Creatinine 0.85, Estimat Glomerular Filtration Rate 75, BUN/Creatinine Ratio 26, Glucose Level 118H, Calcium Level 8.5, Corrected Calcium 8.9, Phosphorus Level 4.3, Magnesium Level 2.1, Total Bilirubin 0.4, Aspartate Amino Transf (AST/SGOT) 15, Alanine Aminotransferase (ALT/SGPT) 16, Alkaline Phosphatase 89, Total Protein 6.2L, Albumin 3.5, Smear Scan YES Microbiology 03/31/23 MRSA Screen - Final, Complete MRSA not isolated Patient resulted labs reviewed. Pending Labs Laboratory Tests 04/01/23 04:38: White Blood Count 8.6, Red Blood Count 4.63, Hemoglobin 13.0, Hematocrit 40, Mean Corpuscular Volume 87, Mean Corpuscular Hemoglobin 28, Mean Corpuscular Hemoglobin Concent 32, Red Cell Distribution Width 13.6, Platelet Count 359, Mean Platelet Volume 9.7, Immature Granulocyte % (Auto) 1, Neutrophils (%) (Auto) 58, Lymphocytes (%) (Auto) 24, Monocytes (%) (Auto) 13, Eosinophils (%) (Auto) 3, Basophils (%) (Auto) 1, Neutrophils # (Auto) 5.0, Lymphocytes # (Auto) 2.1, Monocytes # (Auto) 1.1, Eosinophils # (Auto) 0.3, Basophils # (Auto) 0.1, Immature Granulocyte # (Auto) 0.1, Sodium Level 135, Potassium Level 4.4, Chloride Level 107, Carbon Dioxide Level 18, Anion Gap 10, Blood Urea Nitrogen 22, Creatinine 0.85, Estimat Glomerular Filtration Rate 75, BUN/Creatinine Ratio 26, Glucose Level 118, Calcium Level 8.5, Corrected Calcium 8.9, Phosphorus Level 4.3, Magnesium Level 2.1, Total Bilirubin 0.4, Aspartate Amino Transf (AST/SGOT) 15, Alanine Aminotransferase (ALT/SGPT) 16, Alkaline Phosphatase 89, Total Protein 6.2, Albumin 3.5, Smear Scan YES Discharge Home Medications: Active Scripts Active Reported Tylenol Extra Strength (Acetaminophen) 500 Mg Tablet 500 Mg PO Q6H PRN Garlic 1,000 Mg Capsule 1,000 Mg PO DAILY Multivitamin 1 Each Tablet 1 Each PO DAILY Aspirin EC (Aspirin) 81 Mg Tablet.dr 81 Mg PO DAILY Instructions to patient/family Please see electronic discharge instructions given to patient. Clinical Quality Measures AMI/AHF: ASA po Prior to arrival: No Problem Qualifiers (1) Hypertension: Hypertension type: unspecified Qualified Codes: I10 - Essential (primary) hypertension (2) Shingles: Herpes zoster complications: without complications Qualified Codes: B02.9 - Zoster without complications MANOLO GERARDO MD Apr 01, 2023 08:49
--- NOTE | 2023-04-01 10:20 | Discharge Inst-Simple/Standard ---
Discharge Inst-Standard Patient Instructions/Follow Up Plan of Care/Instructions/FU: Please continue to take your medications as written. Please follow up with your primary care doctor to follow up this hospital stay. Activity as Tolerated: Yes Discharge Diet: Low Sodium Diet, Cardiac Diet Return to The Hospital For: Chest pain, heart racing, shortness of breath, fever, weakness, if you feel you are getting worse. MANOLO GERARDO MD Apr 01, 2023 10:20
[2023-04-01] MEDS ORDERED: APIX5TAB PO (11:51)
[2023-04-01] MEDS ORDERED: LOSA50TA63 PO (11:51)
[2023-04-01] MEDS ORDERED: VALA500T4 PO (11:51)
[2023-04-01] MEDS ORDERED: AMIO200T65 PO (11:51)
[2023-04-01] MEDS ORDERED: MTP25TSR PO (11:51)
[2023-04-01] MEDS ORDERED: LIDOCAINE 4% (SALONPAS) PATCH TOP SCH (12:35)
--- NOTE | 2023-04-01 13:22 | Cardiology Progress Note ---
Subjective Date Seen by Provider: Apr 01, 2023 Time Seen by Provider: 13:21 Subjective/Events-last exam Patient was seen at bedside, laying down comfortably, feeling better today Still having chest pain. Review of Systems General: No Chills, No Night Sweats, No Fatigue, No Malaise, No Appetite, No Other HEENT: No Head Aches, No Visual Changes, No Eye Pain, No Ear Pain, No Dysphasia, No Sinus Congestion, No Post Nasal Drip, No Sore Throat, No Other Pulmonary: No Dyspnea, No Cough, No Pleuritic Chest Pain, No Other Cardiovascular: No: Chest Pain, Palpitations, Orthopnea, Paroxysmal Noc. Dyspnea, Edema, Lt Headedness, Other Objective-Cardiology Exam Last Set of Vital Signs Vital Signs 04/01/23 04/01/23 04/01/23 11:00 12:00 12:26 Pulse 78 Resp 14 B/P (MAP) 159/89 (112) Pulse Ox 98 O2 Delivery Room Air I&O Intake and Output 04/01/23 00:00 Intake Total 1300 ml Output Total 750 ml Balance 550 ml Intake Oral 1300 ml Output Urine Total 750 ml # Voids 4 General: Alert, Oriented X3, Cooperative HEENT: Atraumatic, PERRLA Neck: Supple, No JVD, No Thyromegaly Lungs: Clear to Auscultation, Normal Air Movement Heart: Regular Rate, Normal S1, Normal S2, No Murmurs Abdomen: Normal Bowel Sounds, Soft, No Tenderness, No Hepatosplenomegaly, No Masses Extremities: No Clubbing, No Cyanosis, No Edema, Normal Pulses, No Tenderness/Swelling Skin: No Rashes, No Breakdown, No Significant Lesion Neuro: Normal Gait, Normal Speech, Strength at 5/5 X4 Ext, Normal Tone, S ensation Intact Psych/Mental Status: Mental Status NL, Mood NL Results Lab Laboratory Tests 04/01/23 04:38 A/P-Cardiology Admission Diagnosis Chest pain Shingles CAD CHF Assessment/Plan Chest pain, nonspecific etiology, EKG done in ER showing sinus tachycardia with no acute ST changes. Troponin negative. Patient complaining of right sided chest pain, could be secondary to shingles. Will continue on telemetry and continue to monitor, consider stress test as an outpatient CAD, reported history of stenting done in 2015. Has not followed with cardiology recently. Paroxysmal atrial fibrillation, had multiple episodes of atrial fibrillation on March 30, 2023. Transferred to ICU and started on Cardizem drip Currently in sinus rhythm Started on amiodarone and Eliquis, tolerating well. Continue to monitor CHF, acute LV systolic dysfunction. 2D Echo done 03/30/23 showing normal LV size, EF 40-45%. Grade 1 diastolic dysfunction, mild to moderate MR. PA 25-30mmHg. Unknown etiology, possibly ischemic in nature. Will start patient on low dose beta fide, ARB if she is agreeable. HTN, has been noncompliant with blood pressure medications in the past. Blood pressure elevated. Continue on Toprol-XL 25 mg daily Questionable HLP, I will evaluate lipid profile Shingles to right torso/shoulder. Receiving acyclovir. Management per medical services. Anxiety RACHEAL DE PAZ MD Apr 01, 2023 13:22
[2023-04-01] MEDS ORDERED: LIDOCAINE PATCH REMOVAL TP SCH (21:00)
== END 2023-04-01 14:10 | disposition home or self-care (01) | DRG 308 ==
LOC: ER FS 18:25 → 4TH 22:55 → ICU 03-31 00:27 → OBSVTOIN 03-31 11:28
PROVIDERS: ADMIT Internal Medicine; ATTEND Internal Medicine
DX: I48.0 Paroxysmal atrial fibrillation (principal); I50.21 Acute systolic (congestive) heart failure; B02.9 Zoster without complications; I16.0 Hypertensive urgency; I11.0 Hypertensive heart disease with heart failure; E78.00 Pure hypercholesterolemia, unspecified; I34.0 Nonrheumatic mitral (valve) insufficiency; I25.10 Atherosclerotic heart disease of native coronary artery without angina pectoris; F41.9 Anxiety disorder, unspecified; I25.2 Old myocardial infarction; Z95.5 Presence of coronary angioplasty implant and graft
CPT/HCPCS: 36415; 71045; 80048; 80053; 83690; 83735; 83880; 84100; 84443; 84484; 85025; 85379; 85610; 85730; 87081; 93005; 93041; 93306; G0378

== ENCOUNTER 2023-08-12 04:24 | Emergency (ER) | payer MEDICARE ==
[~2023-08-12] VITALS: Ht 167.7 cm; Wt 74.0 kg
[~2023-08-12 04:24] MED LIST: ACET-2267 PO; AMIO200T65 PO; APIX5TAB PO; ASPI-1238 PO; GARL10002 PO; LOSA50TA63 PO; MTP25TSR PO; MULT-1136 PO; VALA500T4 PO
[2023-08-12] MEDS ORDERED: ROCURONIUM 10 MG/ML 5 ML SYRINGE IV ONE (04:26)
[2023-08-12] MEDS ORDERED: SODIUM BICARB 8.4% 50 MEQ/50 ML (ABBOTT) SYR INJ ONE (04:26)
[2023-08-12] MEDS ORDERED: SUCCINYLCHOLINE INJ 100 MG/5 ML SYR/VIAL INJ ONE (04:26)
[2023-08-12] MEDS ORDERED: MIDAZOLAM INJ 5 MG/5 ML VIAL INJ ONE (04:26)
[2023-08-12] MEDS ORDERED: NS IV 1000 ML 1,000 ML IV ONE (04:26)
[2023-08-12] MEDS ORDERED: methylPREDNISolone INJ 125 MG VIAL IVP ONE (05:00)
[2023-08-12] MEDS ORDERED: CEFEPIME INJECTION 1,000 MG in NS (IVPB) 50 ML 50 ML IV ONE (05:00)
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
[2023-08-12 05:14] LABS: ABG PCO2 50 MMHG (35-45); ABG PH 7.11 (7.37-7.43)
[2023-08-12 05:15] LABS: ABG PO2 502 MMHG (79-93)
[2023-08-12 05:17] LABS: ABG BASE EXCESS -13.5 MMOL/L (-2.5-2.5); ABG OXYGEN SATURATION 100 % (94-100); ABG TCO2 17.4 MMOL/L (21.0-31.0); INSPIRED O2 100%; VENTILATOR YES
[2023-08-12 05:21] LABS: BASOPHILS # (AUTO) 0.1 10^3/uL (0.0-0.1); BASOPHILS % (AUTO) 1 % (0-10); EOSINOPHILS # (AUTO) 0.4 10^3/uL (0.0-0.3); EOSINOPHILS % (AUTO) 4 % (0-10); HEMATOCRIT 42 % (35-52); HEMOGLOBIN 12.7 g/dL (11.5-16.0); LYMPHOCYTES # (AUTO) 3.3 10^3/uL (1.0-4.0); LYMPHOCYTES % (AUTO) 29 % (12-44); MEAN CORPUSCULAR HEMOGLOBIN 29 pg (25-34); MEAN CORPUSCULAR HGB CONC 30 g/dL (32-36); MEAN CORPUSCULAR VOLUME 95 fL (80-99); MEAN PLATELET VOLUME 10.6 fL (9.0-12.2); MONOCYTES # (AUTO) 0.9 10^3/uL (0.0-1.0); MONOCYTES % (AUTO) 8 % (0-12); NEUTROPHILS # (AUTO) 6.7 10^3/uL (1.8-7.8); NEUTROPHILS % (AUTO) 58 % (42-75); PLATELET COUNT 438 10^3/uL (130-400); WHITE BLOOD COUNT 11.6 10^3/uL (4.3-11.0)
[2023-08-12 05:33] LABS: CARBON DIOXIDE 17 MMOL/L (21-32); POTASSIUM 3.9 MMOL/L (3.6-5.0)
[2023-08-12 05:33] LABS: BILIRUBIN,URINE NEGATIVE (NEGATIVE); CLARITY,URINE SL CLOUDY; COLOR,URINE YELLOW; GLUCOSE, URINE (UA) 1+ (NEGATIVE); KETONES,URINE NEGATIVE (NEGATIVE); LEUKOCYTE ESTERASE ,URINE NEGATIVE (NEGATIVE); NITRITE,URINE NEGATIVE (NEGATIVE); PROTEIN,URINE 2+ (NEGATIVE)
[2023-08-12 05:36] LABS: GLUCOSE 477 MG/DL (70-105)
[2023-08-12] MEDS ORDERED: inSUlin (REGULAR) HUMAN 1 UNIT/0.01 ML (CHARGE PER UNIT) IV STA (05:36)
[2023-08-12 05:44] LABS: PROTHROMBIN TIME PATIENT 14.1 SEC (12.2-14.7)
[2023-08-12 05:45] LABS: FIBRIN DEGRADATION PRODUCTS 1.57 UG/ML (0.00-0.49)
[2023-08-12 05:46] LABS: BACTERIA,URINE TRACE /HPF; RBC,URINE RARE /HPF; SQUAMOUS EPITHELIAL CELL,UR RARE /HPF
[2023-08-12 05:49] LABS: BUN/CREATININE RATIO 21; CHLORIDE 107 MMOL/L (98-107); CREATININE SERUM 1.16 MG/DL (0.60-1.30); GFR ESTIMATED 51; SODIUM 140 MMOL/L (135-145)
[2023-08-12 05:50] LABS: ALANINE AMINOTRANSFERASE 48 U/L (0-55); ALBUMIN 3.8 GM/DL (3.2-4.5); ALKALINE PHOSPHATASE 116 U/L (40-136); BILIRUBIN,TOTAL 0.5 MG/DL (0.1-1.0); MAGNESIUM 2.3 MG/DL (1.6-2.4); TOTAL PROTEIN 6.5 GM/DL (6.4-8.2)
[2023-08-12 06:15] VITALS: BP 175/88
--- NOTE | 2023-08-12 07:35 | Diagnostic Imaging Report ---
CHEST 1 VIEW AP/PA ONLY INDICATION: SOB. COMPARISON: Chest radiograph 03/29/2023. FINDINGS: Lungs: Normal lung volume. Right perihilar and right upper lobe airspace opacity Pleura: Small bilateral pleural effusion Heart and Mediastinum: Cardiomegaly. Pulmonary vascularity is within normal limits. Osseous Structures and Soft Tissues: No acute osseous abnormality. Normal soft tissues. IMPRESSION: Right perihilar and right upper lobe airspace opacity concerning for infection. Small bilateral pleural effusions. Dictated by: Dictated on workstation # [id number]
== END 2023-08-12 06:20 | disposition short-term general hospital (02) ==
LOC: EDUNIT# 04:24 → ER FS 04:25
DX: R06.03 Acute respiratory distress (principal); E87.29 Other acidosis; I11.0 Hypertensive heart disease with heart failure; I50.9 Heart failure, unspecified
CPT/HCPCS: 36415; 51702; 71045; 80053; 81000; 82805; 83735; 83880; 84484; 85025; 85379; 85610; 85730; 99291